=== PATIENT | female | born 1980 | race Caucasian/White ===

== ENCOUNTER 2017-02-17 18:58 | Emergency (ER) | payer OTHER ==
--- NOTE | 2017-02-17 19:37 | ED ORDER SUMMARY ---
..... Patient: MASON LAN OrderSheet [facility] VisitID: [id number] [address] [place] [address] 36y, F Registration Date/Time: 02/17/2017 ORDER SHEET Weight: 90.7 kg (stated) Allergies: No Known Drug Allergy GENERAL ORDERS: MEDICATION ORDERS: Penicillin V Potassium PO 500 mg (NOW) (19:31 02/17/2017 Myrna Garcia) (Ack 19:41 JSanders R.N.) (19:48 JSanders R.N.) - (oxycodone 5 mg po once now) (19:32 02/17/2017 Myrna Garcia) (Ack 19:41 JSanders R.N.) (19:48 JSanders R.N.) IV FLUIDS: ORDER SHEET NOTES: [Electronically signed by Marlys Arellano R.N. (20:04 02/17/2017)] [Electronically signed by Jeff Dominique Dr. (20:11 02/17/2017)] [Electronically locked/signed by Marlys Arellano R.N. (20:02/17/2017)]
--- NOTE | 2017-02-17 19:37 | ED NURSING NOTES ---
Clinical Report - [facility] [place] [address] 02/17/2017 18:58 [id number] Triage time 19:14 Feb 17 2017. Acuity: LEVEL 4. Chief Complaint: RIGHT UPPER and LOWER TOOTHACHE and JAW PAIN and SWELLING OF JAW / FACE. 19:19 02/17/17. SEPSIS SCREEN: Sepsis Screen. Negative (no infection suspected/documented). NICO COMA SCORE: Nico Coma Scale: 15- eyes open spontaneously (4); best verbal response- oriented x 4 (5); best motor response- obeys commands (6). --19:19 Marlys Arellano R.N. 19:14 02/17/17. BP: 133/78 (regular adult cuff) taken on the right arm. HR: 83. RR: 18 (regular). O2 saturation: 100% on room air. Temp: 98.1 F (oral). Pain level now: 06/27. --19:19 Marlys Arellano R.N. Weight: 90.7 kg stated. Height/Length: 68 inches Per Patient. BMI: 30.4. --19:15 Marlys Arellano R.N. Medications None. --19:15 Marlys Arellano R.N. Allergies No Known Drug Allergy. --19:15 Marlys Arellano R.N. History Arrived by private vehicle. Historian: patient. Accompanied by friend. This started today. She has had mild left ear pain. She has had left-sided facial pain. She has had a toothache involving multiple teeth (left upper molar, left lower molar). 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 PAST MEDICAL HX: Dental caries. SOCIAL HX: Current every day heavy tobacco smoker (cigarette)- 1 pack per day. History of heavy drug use: marijuana. Recently used drugs today. No alcohol use. ABUSE ASSESSMENT: No report of abuse. --19:19 Marlys Arellano R.N. PROBLEMS: Hepatitis. --19:15 Arellano, Marlys, R.N. ADDITIONAL SURGERIES: sections. --19:15 Marlys Arellano R.N. Interventions ID band on patient. To treatment room. --19:19 Marlys Arellano R.N. PHYSICAL ASSESSMENT 19:02/17/17. Ambulatory to room. GENERAL / NEURO / PSYCH: Alert. Oriented X 4. Appears in pain. HEENT: Pupils equal, round and reactive to light. Pharynx within normal limits. Voice within normal limits. Dental tenderness. Dental decay. Mucous membranes are pink. RESPIRATORY: Respirations not labored. CVS: Capillary refill less than 2 seconds. SKIN: Skin is warm. Normal skin turgor. --19:19 Marlys Arellano R.N. NURSING PROGRESS NOTES 19:02/17/17. The plan of care for this patient has been created. Cold pack applied. Head of bed elevated. Reassurance given. Two patient identifiers checked. Call light placed in reach. Side rails up x 1. Bed placed in lowest position. Brakes of bed on. Patient ready for evaluation- chart flagged and PA notified. --19:19 Marlys Arellano R.N. 19:48 02/17/2017 Penicillin V Potassium PO Capsules 500 mg given. Allergies verified and confirmed 5 rights. --19:48 Marlys Arellano R.N. 19:48 02/17/2017 oxycodone * PO 5mg --19:48 Marlys Arellano R.N. 19:49 02/17/17. ( Patient does not want a blanket at this time, she was given medications, all 5 rights checked on medication including Oxycodone). --19:49 Marlys Arellano R.N. DISPOSITION / DISCHARGE Departure time: 20:Feb 17 2017. Condition at departure: unchanged. No learning barriers present. Discharge instructions provided and reviewed with the patient. Reviewed medication(s) side effects, precautions, dosing and course information. Prescription(s) given to the patient. Patient verbalized understanding. Written instructions provided in Cymro. The patient was discharged by the physician. She was discharged home and accompanied by asset card clerk. She left the Emergency Department ambulatory and via private vehicle. Outdoor Illuminating Engineer driving. --20:03 Marlys Arellano R.N. 20:02 02/17/17. BP: 119/81. HR: 72. RR: 18. O2 saturation: 100% on room air. Temp: 98.3 F (oral). Pain level now: 06/27. --20:03 Marlys Arellano R.N. Locked/Released at 02/17/2017 20:04 by Marlys Arellano R.N.
--- NOTE | 2017-02-17 19:37 | ED CLINICAL REPORT ---
Clinical Report - Physicians/Mid Levels [facility] [address] [place] [address] 02/17/2017 18:58 Patient: MASON LAN Time Seen: 1924. Arrived- By private vehicle. Historian- patient. HISTORY OF PRESENT ILLNESS Chief Complaint: DENTAL PAIN. This started today and is still present (unchanged). It was abrupt in onset but is not gone now. Pain described as severe. The patient has had toothache. (states she was eating a twix when it suddendly got worse.). Similar symptoms previously: (several times). Recent medical care: Not recently seen/assessed. REVIEW OF SYSTEMS No fever, difficulty breathing, chest pain, nausea or headache. All systems otherwise negative, except as recorded above. PAST HISTORY See nurses notes. SOCIAL HISTORY Smoker- current status unknown. History of occasional drug use: marijuana. No alcohol use. No recent travel. Is a local resident. ADDITIONAL NOTES The nursing notes have been reviewed. PHYSICAL EXAM Vital Signs: 02/17/2017 19:14 BP: 133/78. HR: 83. RR: 18. O2 saturation: 100%. Temp: 98.1 F. Pain level now: 10/10. Blood pressure normal. Oxygen saturation normal. Appearance: Alert. No acute distress. (non-toxic). Head: Normal external inspection. No facial erythema. No tenderness to palpation/percussion over the sinuses, mandibular swelling or maxillary swelling. Eyes: Pupils equal, round and reactive to light. Conjunctivae and eyelids normal. ENT: Severe, extensive dental decay (upper right molars, lower right molars). Ears normal. Nose normal. Pharynx normal. Lips normal. Gums normal. No trismus present. Uvula midline. Neck: Normal inspection. Trachea midline. No adenopathy. Thyroid normal. Neck supple. No lymphadenopathy. CVS: Normal heart rate and rhythm. Heart sounds normal. Pulses normal. Respiratory: No respiratory distress. Breath sounds normal. Chest nontender. Abdomen: Soft and nontender. No organomegaly. Skin: Normal skin color. No rash. Normal skin turgor. Extremities: Extremities exhibit normal ROM. Extremities nontender. Neuro: Oriented X 3. No motor deficit. No sensory deficit. PROGRESS AND PROCEDURES Course of Care: The patient is a pleasant 36 yo female presenting for evaluation of dental pain. Patient has been evaluated for retropharyngeal abscess, Ludwigs angina, acute necrotizing ulcerative gingivitis, and peritonsillar abscess. The exam findings are not consistent with any of these etiologies. Evidence for dental pain noted on examination. No concern for airway compromise at this time. Patient appears nontoxic. Vital signs are otherwise unremarkable. Do not feel patient is septic at this time. Patient be managed conservatively at this time with antibiotics and nonsteroidal anti-inflammatory medications as tolerated. Patient be instructed to avoid nonsteroidal anti-inflammatory medications if theyre allergic or have intolerances. Do not feel patient needs to be admitted to the hospital or require further emergency department workup/evaluation. Encouraged patient to follow up with the dentist as soon as possible ideally within the next 2 or 3 days. Has appointment tomorrow which she is encouraged to keep. Reviewed risks and benefits of the procedure. Declines dental block due to fear of needles. Patient has been reevaluated. No evidence of airway compromise. Patient continues to be nontoxic and in no acute distress. I discussed the patient workup, diagnosis, home care, follow-up, and return precautions. All questions answered. The patient expressed understanding of these instructions and was agreeable to them. Disposition: Discharged. Condition: good. CLINICAL IMPRESSION 02/17/2017 19:14 BP: 133/78. HR: 83. RR: 18. O2 saturation: 100%. Temp: 98.1 F. Pain level now: 10/10. Oxygen saturation normal. Dental caries (extensive decay) (acute right mandibular and maxillary molars). acute right facial pain. INSTRUCTIONS Warnings: GENERAL WARNINGS: Return or contact your physician immediately if your condition worsens or changes unexpectedly, if not improving as expected, or if other problems arise. Specifically return if pain, vomiting, bleeding, breathing difficulty or fever. Your Current Medications: CONTINUE TAKING THE FOLLOWING MEDICATIONS: None*. Prescription Medications: Penicillin V 500 mg: take 1 tab orally every 12 hours for 10 days. Dispense twenty (20). No refills. (disp 20 tabs) Morphine sulfate IR 15 mg tabs. Take 1 tab by mouth every 8 hours ONLY as needed for severe pain. Disp 10 tabs. No refills. Substitution allowed. Follow-up: Return to the emergency department as needed. Follow up with a dentist. Reason for referral: as soon as possible, ideally within 3 days. . Summary of care provided to patient via paper. Follow up with your doctor in three days. Reason for referral: recheck today's concerns. Summary of care provided to patient via paper. Screening today revealed the patient's blood pressure to be in the normal range. The patient should follow up with a primary care provider for blood pressure management. Understanding of the discharge instructions verbalized by patient. (Electronically signed by Jeff Dominique Dr. 02/17/2017 20:11)
--- NOTE | 2017-02-17 19:37 | ED ORDER SUMMARY ---
..... Patient: MASON LAN OrderSheet [facility] VisitID: [id number] [address] [place] [address] 36y, F Registration Date/Time: 02/17/2017 ORDER SHEET Weight: 90.7 kg (stated) Allergies: No Known Drug Allergy GENERAL ORDERS: MEDICATION ORDERS: Penicillin V Potassium PO 500 mg (NOW) (19:31 02/17/2017 Myrna Garcia) (Ack 19:41 JSanders R.N.) (19:48 JSanders R.N.) - (oxycodone 5 mg po once now) (19:32 02/17/2017 Myrna Garcia) (Ack 19:41 JSanders R.N.) (19:48 JSanders R.N.) IV FLUIDS: ORDER SHEET NOTES: [Electronically signed by Marlys Arellano R.N. (20:04 02/17/2017)] [Electronically signed by Jeff Dominique Dr. (20:11 02/17/2017)] [Electronically locked/signed by Marlys Arellano R.N. (20:02/17/2017)]
--- NOTE | 2017-02-17 19:37 | ED NURSING NOTES ---
Clinical Report - Nurses [facility] [place] [address] 02/17/2017 18:58 [id number] Triage time 19:14 Feb 17 2017. Acuity: LEVEL 4. Chief Complaint: RIGHT UPPER and LOWER TOOTHACHE and JAW PAIN and SWELLING OF JAW / FACE. 19:19 02/17/17. SEPSIS SCREEN: Sepsis Screen. Negative (no infection suspected/documented). NICO COMA SCORE: Nico Coma Scale: 15- eyes open spontaneously (4); best verbal response- oriented x 4 (5); best motor response- obeys commands (6). --19:19 Marlys Arellano R.N. 19:14 02/17/17. BP: 133/78 (regular adult cuff) taken on the right arm. HR: 83. RR: 18 (regular). O2 saturation: 100% on room air. Temp: 98.1 F (oral). Pain level now: 06/27. --19:19 Marlys Arellano R.N. Weight: 90.7 kg stated. Height/Length: 68 inches Per Patient. BMI: 30.4. --19:15 Marlys Arellano R.N. Medications None. --19:15 Marlys Arellano R.N. Allergies No Known Drug Allergy. --19:15 Marlys Arellano R.N. History Arrived by private vehicle. Historian: patient. Accompanied by friend. This started today. She has had mild left ear pain. She has had left-sided facial pain. She has had a toothache involving multiple teeth (left upper molar, left lower molar). 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 PAST MEDICAL HX: Dental caries. SOCIAL HX: Current every day heavy tobacco smoker (cigarette)- 1 pack per day. History of heavy drug use: marijuana. Recently used drugs today. No alcohol use. ABUSE ASSESSMENT: No report of abuse. --19:19 Marlys Arellano R.N. PROBLEMS: Hepatitis. --19:15 Arellano, Marlys, R.N. ADDITIONAL SURGERIES: sections. --19:15 Marlys Arellano R.N. Interventions ID band on patient. To treatment room. --19:19 Marlys Arellano R.N. PHYSICAL ASSESSMENT 19:02/17/17. Ambulatory to room. GENERAL / NEURO / PSYCH: Alert. Oriented X 4. Appears in pain. HEENT: Pupils equal, round and reactive to light. Pharynx within normal limits. Voice within normal limits. Dental tenderness. Dental decay. Mucous membranes are pink. RESPIRATORY: Respirations not labored. CVS: Capillary refill less than 2 seconds. SKIN: Skin is warm. Normal skin turgor. --19:19 Marlys Arellano R.N. NURSING PROGRESS NOTES 19:02/17/17. The plan of care for this patient has been created. Cold pack applied. Head of bed elevated. Reassurance given. Two patient identifiers checked. Call light placed in reach. Side rails up x 1. Bed placed in lowest position. Brakes of bed on. Patient ready for evaluation- chart flagged and PA notified. --19:19 Marlys Arellano R.N. 19:48 02/17/2017 Penicillin V Potassium PO Capsules 500 mg given. Allergies verified and confirmed 5 rights. --19:48 Marlys Arellano R.N. 19:48 02/17/2017 oxycodone * PO 5mg --19:48 Marlys Arellano R.N. 19:49 02/17/17. ( Patient does not want a blanket at this time, she was given medications, all 5 rights checked on medication including Oxycodone). --19:49 Marlys Arellano R.N. DISPOSITION / DISCHARGE Departure time: 20:Feb 17 2017. Condition at departure: unchanged. No learning barriers present. Discharge instructions provided and reviewed with the patient. Reviewed medication(s) side effects, precautions, dosing and course information. Prescription(s) given to the patient. Patient verbalized understanding. Written instructions provided in [place]an. The patient was discharged by the physician. She was discharged home and accompanied by planer setup operator. She left the Emergency Department ambulatory and via private vehicle. Security Installation Sales Technician driving. --20:03 Marlys Arellano R.N. 20:02 02/17/17. BP: 119/81. HR: 72. RR: 18. O2 saturation: 100% on room air. Temp: 98.3 F (oral). Pain level now: 06/27. --20:03 Marlys Arellano R.N. Locked/Released at 02/17/2017 20:04 by Marlys Arellano R.N.
--- NOTE | 2017-02-17 20:11 | ED DISCHARGE INSTRUCTIONS ---
Patient: MASON LAN General Instructions [facility] VisitID: [id number] [place] [address] 36y, F Registration Date/Time: 02/17/2017 02/17/2017 19:14 BP: 133/78. HR: 83. RR: 18. O2 saturation: 100%. Temp: 98.1 F. Pain level now: 1010. Oxygen saturation normal. Dental caries (extensive decay) (acute right mandibular and maxillary molars). acute right facial pain. INSTRUCTIONS Warnings: GENERAL WARNINGS: Return or contact your physician immediately if your condition worsens or changes unexpectedly, if not improving as expected, or if other problems arise. Specifically return if pain, vomiting, bleeding, breathing difficulty or fever. Your Current Medications: CONTINUE TAKING THE FOLLOWING MEDICATIONS: None*. Prescription Medications: Penicillin V 500 mg: take 1 tab orally every 12 hours for 10 days. Dispense twenty (20). No refills. (disp 20 tabs) Morphine sulfate IR 15 mg tabs. Take 1 tab by mouth every 8 hours ONLY as needed for severe pain. Disp 10 tabs. No refills. Substitution allowed. Follow-up: Return to the emergency department as needed. Follow up with a dentist. Reason for referral: as soon as possible, ideally within 3 days. . Summary of care provided to patient via paper. Follow up with your doctor in three days. Reason for referral: recheck today's concerns. Summary of care provided to patient via paper. Screening today revealed the patient's blood pressure to be in the normal range. The patient should follow up with a primary care provider for blood pressure management. Understanding of the discharge instructions verbalized by patient. ADDITIONAL INFORMATION Dental Cavity A dental cavity is a pit or crater in the enamel surface of the tooth. This exposes the sensitive inner layer of the tooth and causes pain. If untreated, the cavity will get bigger and may cause an infection or abscess in the root of the tooth. An infection in the tooth is a much more serious problem and may require a root canal or removal of the entire tooth. The tooth pain may be made worse by drinking hot or cold fluids. It may spread from the tooth to the ear or jaw on the same side. Home Care: Avoid hot and cold foods, and liquids since your tooth may be sensitive to temperature changes. If your tooth is chipped or cracked, or if there is a large open cavity, apply OIL OF CLOVES (available [id number] in drug stores) directly to the tooth to reduce pain. Some pharmacies carry an ueud-bue-vswuput "toothache kit." This contains oil of cloves and a paste, which can be applied over the exposed tooth to decrease sensitivity. An ice pack on your jaw over the sore area may help to reduce pain. You may use acetaminophen (Tylenol) or ibuprofen (Motrin, Advil) to control pain, unless another pain medicine was prescribed. [ NOTE: If you have liver disease or ever had a stomach ulcer, talk with your doctor before using these medicines.] If you have signs of an infection, an antibiotic will be given. Take it as directed. Follow-Up with your dentist as directed. Although your pain may go away with the treatment given, only a dentist can fully evaluate and treat this problem to prevent further tooth damage. Get Prompt Medical Attention if any of the following occur: Redness or swelling of the face Pain worsens or spreads to the neck Fever over 100.5 F (38C) Unusual drowsiness; headache or stiff neck; weakness or fainting Pus drains from the tooth or gum Difficulty swallowing or breathing Penicillin V Potassium Oral tablet What is this medicine? PENICILLIN V (pen i SILL in V) is a penicillin antibiotic. It is used to treat certain kinds of bacterial infections. It will not work for colds, flu, or other viral infections. How should I use this medicine? Take this medicine by mouth with a full glass of water. Follow the directions on the prescription label. Take your medicine at regular intervals. Do not take your medicine more often than directed. Take all of your medicine as directed even if you think your are better. Do not skip doses or stop your medicine early. Talk to your sole splitter regarding the use of this medicine in children. While this drug may be prescribed for selected conditions, precautions do apply. What side effects may I notice from receiving this medicine? Side effects that you should report to your doctor or health acute care registered nurse as soon as possible: allergic reactions like skin rash or hives, swelling of the face, lips, or tongue breathing problems fever new symptoms of infection redness, blistering, peeling or loosening of the skin, including inside the mouth unusually weak or tired Side effects that usually do not require medical attention (report to your doctor or health acute care registered nurse if they continue or are bothersome): diarrhea headache nausea, vomiting sore mouth or tongue stomach upset What may interact with this medicine? control pills methotrexate other antibiotics probenecid some vaccines What if I miss a dose? If you miss a dose, take it as soon as you can. If it is almost time for your next dose, take only that dose. Do not take double or extra doses. Where should I keep my medicine? Keep out of the reach of children. Store at room temperature between 15 and 30 degrees C (59 and 86 degrees F). Keep container tightly closed. Throw away any unused medicine after the expiration date. What should I tell my health care provider before I take this medicine? They need to know if you have any of these conditions: asthma bowel disease, like colitis eczema kidney disease an unusual or allergic reaction to penicillin, cephalosporins, other antibiotics or medicines, foods, tartrazine or other dyes, or preservatives or trying to get breast-feeding What should I watch for while using this medicine? Tell your doctor or health acute care registered nurse if your symptoms do not improve. Do not treat diarrhea with over the counter products. Contact your doctor if you have diarrhea that lasts more than 2 days or if it is severe and watery. If you have diabetes, you may get a false-positive result for sugar in your urine. Check with your doctor or health acute care registered nurse. control pills may not work properly while you are taking this medicine. Talk to your doctor about using an extra method of control. You have been given the following additional information: Dental Cavity Penicillin V Potassium Oral tablet (Electronically signed by Jeff Dominique Dr. 02/17/2017 20:11)
--- NOTE | 2017-02-17 20:11 | ED MED RECONCILIATION SUMMARY ---
Patient: MASON LAN Medication Reconciliation Report [facility] VisitID: [id number] [address] [place] [address] 36y, F Registration Date/Time: 02/17/2017 Weight: 90.7 kg Height/Length: 68 in. BMI: 30.4 ALLERGIES: No Known Drug Allergy The patient's Home Medications are listed below: NONE. The source(s) of the original Home Medication information: Not obtained. The following Medications were given to the patient in the Emergency Department: Penicillin V Potassium [PO] PO 500 mg, administered: 02/17/2017 7:48:00 PM oxycodone PO 5mg, administered: 02/17/2017 7:48:00 PM The following Medications were prescribed to the patient: Penicillin V 500 mg: take 1 tab orally every 12 hours for 10 days. Dispense twenty (20). No refills.(disp 20 tabs) -- Jeff Dominique Dr. Morphine sulfate IR 15 mg tabs. Take 1 tab by mouth every 8 hours ONLY as needed for severe pain. Disp 10 tabs. No refills. Substitution allowed. -- Jeff Dominique Dr.
--- NOTE | 2017-02-17 20:11 | ED MAR SUMMARY ---
..... Medication Administration Record [facility] [address] [place] [address] Patient: MASON LAN Visit ID: [id number] 36y, F Weight: 90.7 kg Height/Length: 68 in BMI: 30.4 ALLERGIES: No Known Drug Allergy Given 02/17/2017 Marlys Arellano R.N. Medication Administered: PENICILLIN V POTASSIUM [PO], Dose: 500 mg Capsules PO. Medication Ordered: Penicillin V Potassium PO 500 mg (NOW). Given 19:02/17/2017 Marlys Arellano R.N. Medication Administered: oxycodone *, Dose: 5mg * PO. Medication Ordered: - (oxycodone 5 mg po once now).
--- NOTE | 2017-02-17 20:11 | ED DISCHARGE INSTRUCTIONS ---
Patient: MASON LAN General Instructions [facility] VisitID: [id number] [place] [address] 36y, F Registration Date/Time: 02/17/2017 02/17/2017 19:14 BP: 133/78. HR: 83. RR: 18. O2 saturation: 100%. Temp: 98.1 F. Pain level now: 1010. Oxygen saturation normal. Dental caries (extensive decay) (acute right mandibular and maxillary molars). acute right facial pain. INSTRUCTIONS Warnings: GENERAL WARNINGS: Return or contact your physician immediately if your condition worsens or changes unexpectedly, if not improving as expected, or if other problems arise. Specifically return if pain, vomiting, bleeding, breathing difficulty or fever. Your Current Medications: CONTINUE TAKING THE FOLLOWING MEDICATIONS: None*. Prescription Medications: Penicillin V 500 mg: take 1 tab orally every 12 hours for 10 days. Dispense twenty (20). No refills. (disp 20 tabs) Morphine sulfate IR 15 mg tabs. Take 1 tab by mouth every 8 hours ONLY as needed for severe pain. Disp 10 tabs. No refills. Substitution allowed. Follow-up: Return to the emergency department as needed. Follow up with a dentist. Reason for referral: as soon as possible, ideally within 3 days. . Summary of care provided to patient via paper. Follow up with your doctor in three days. Reason for referral: recheck today's concerns. Summary of care provided to patient via paper. Screening today revealed the patient's blood pressure to be in the normal range. The patient should follow up with a primary care provider for blood pressure management. Understanding of the discharge instructions verbalized by patient. ADDITIONAL INFORMATION Dental Cavity A dental cavity is a pit or crater in the enamel surface of the tooth. This exposes the sensitive inner layer of the tooth and causes pain. If untreated, the cavity will get bigger and may cause an infection or abscess in the root of the tooth. An infection in the tooth is a much more serious problem and may require a root canal or removal of the entire tooth. The tooth pain may be made worse by drinking hot or cold fluids. It may spread from the tooth to the ear or jaw on the same side. Home Care: Avoid hot and cold foods, and liquids since your tooth may be sensitive to temperature changes. If your tooth is chipped or cracked, or if there is a large open cavity, apply OIL OF CLOVES (available [id number] in drug stores) directly to the tooth to reduce pain. Some pharmacies carry an [id number]-[id number] "toothache kit." This contains oil of cloves and a paste, which can be applied over the exposed tooth to decrease sensitivity. An ice pack on your jaw over the sore area may help to reduce pain. You may use acetaminophen (Tylenol) or ibuprofen (Motrin, Advil) to control pain, unless another pain medicine was prescribed. [ NOTE: If you have liver disease or ever had a stomach ulcer, talk with your doctor before using these medicines.] If you have signs of an infection, an antibiotic will be given. Take it as directed. Follow-Up with your dentist as directed. Although your pain may go away with the treatment given, only a dentist can fully evaluate and treat this problem to prevent further tooth damage. Get Prompt Medical Attention if any of the following occur: Redness or swelling of the face Pain worsens or spreads to the neck Fever over 100.5 F (38C) Unusual drowsiness; headache or stiff neck; weakness or fainting Pus drains from the tooth or gum Difficulty swallowing or breathing Penicillin V Potassium Oral tablet What is this medicine? PENICILLIN V (pen i SILL in V) is a penicillin antibiotic. It is used to treat certain kinds of bacterial infections. It will not work for colds, flu, or other viral infections. How should I use this medicine? Take this medicine by mouth with a full glass of water. Follow the directions on the prescription label. Take your medicine at regular intervals. Do not take your medicine more often than directed. Take all of your medicine as directed even if you think your are better. Do not skip doses or stop your medicine early. Talk to your non licensed nuclear plant operator regarding the use of this medicine in children. While this drug may be prescribed for selected conditions, precautions do apply. What side effects may I notice from receiving this medicine? Side effects that you should report to your doctor or health respite care provider as soon as possible: allergic reactions like skin rash or hives, swelling of the face, lips, or tongue breathing problems fever new symptoms of infection redness, blistering, peeling or loosening of the skin, including inside the mouth unusually weak or tired Side effects that usually do not require medical attention (report to your doctor or health respite care provider if they continue or are bothersome): diarrhea headache nausea, vomiting sore mouth or tongue stomach upset What may interact with this medicine? control pills methotrexate other antibiotics probenecid some vaccines What if I miss a dose? If you miss a dose, take it as soon as you can. If it is almost time for your next dose, take only that dose. Do not take double or extra doses. Where should I keep my medicine? Keep out of the reach of children. Store at room temperature between 15 and 30 degrees C (59 and 86 degrees F). Keep container tightly closed. Throw away any unused medicine after the expiration date. What should I tell my health care provider before I take this medicine? They need to know if you have any of these conditions: asthma bowel disease, like colitis eczema kidney disease an unusual or allergic reaction to penicillin, cephalosporins, other antibiotics or medicines, foods, tartrazine or other dyes, or preservatives or trying to get breast-feeding What should I watch for while using this medicine? Tell your doctor or health respite care provider if your symptoms do not improve. Do not treat diarrhea with over the counter products. Contact your doctor if you have diarrhea that lasts more than 2 days or if it is severe and watery. If you have diabetes, you may get a false-positive result for sugar in your urine. Check with your doctor or health respite care provider. control pills may not work properly while you are taking this medicine. Talk to your doctor about using an extra method of control. You have been given the following additional information: Dental Cavity Penicillin V Potassium Oral tablet (Electronically signed by Jeff Dominique Dr. 02/17/2017 20:11)
--- NOTE | 2017-02-17 20:11 | ED MED RECONCILIATION SUMMARY ---
Patient: MASON LAN Medication Reconciliation Report [facility] VisitID: [id number] [address] [place] [address] 36y, F Registration Date/Time: 02/17/2017 Weight: 90.7 kg Height/Length: 68 in. BMI: 30.4 ALLERGIES: No Known Drug Allergy The patient's Home Medications are listed below: NONE. The source(s) of the original Home Medication information: Not obtained. The following Medications were given to the patient in the Emergency Department: Penicillin V Potassium [PO] PO 500 mg, administered: 02/17/2017 7:48:00 PM oxycodone PO 5mg, administered: 02/17/2017 7:48:00 PM The following Medications were prescribed to the patient: Penicillin V 500 mg: take 1 tab orally every 12 hours for 10 days. Dispense twenty (20). No refills.(disp 20 tabs) -- Jeff Dominique Dr. Morphine sulfate IR 15 mg tabs. Take 1 tab by mouth every 8 hours ONLY as needed for severe pain. Disp 10 tabs. No refills. Substitution allowed. -- Jeff Dominique Dr.
--- NOTE | 2017-02-17 20:11 | ED MAR SUMMARY ---
..... Medication Administration Record [facility] [address] [place] [address] Patient: MASON LAN Visit ID: [id number] 36y, F Weight: 90.7 kg Height/Length: 68 in BMI: 30.4 ALLERGIES: No Known Drug Allergy Given 02/17/2017 Marlys Arellano R.N. Medication Administered: PENICILLIN V POTASSIUM [PO], Dose: 500 mg Capsules PO. Medication Ordered: Penicillin V Potassium PO 500 mg (NOW). Given 19:02/17/2017 Marlys Arellano R.N. Medication Administered: oxycodone *, Dose: 5mg * PO. Medication Ordered: - (oxycodone 5 mg po once now).
== END 2017-02-17 20:03 | disposition home or self-care (01) ==
LOC: ED SRH 18:58
DX: K02.9 Dental caries, unspecified (principal); G50.1 Atypical facial pain; F12.10 Cannabis abuse, uncomplicated